=== PATIENT | male | born 1940 | race Caucasian/White ===

== ENCOUNTER 2019-01-28 17:32 | Emergency (ER) | payer MEDICARE, OTHER ==
[~2019-01-28] VITALS: Ht 177.8 cm; Wt 80.3 kg
--- NOTE | 2019-01-28 17:45 | NUR ---
BIB SON FROM URGENT CARE FOR C/O SOB SINCE 8AM AND HYPERTENSION, ALSO C/O SHAKINESS, TO ER BED 10, HOOKED TO MONITOR, CHANGED TO GOWN, PROVIDED W WARM BLANKET, AWAITING MD LOYD
--- NOTE | 2019-01-28 17:50 | NUR ---
DR HEIN AT BEDSIDE
[2019-01-28 18:12] LABS: BASOPHILS % (AUTO) 1.1 % (0.0-2.0); EOSINOPHILS % (AUTO) 0.9 % (0.0-6.0); HEMATOCRIT 43 % (39-51); HEMOGLOBIN 14.8 g/dL (13.5-17.5); LYMPHOCYTES # (AUTO) 0.6 /CMM (0.8-4.8); LYMPHOCYTES % (AUTO) 14.4 % (20.0-44.0); MEAN CORPUSCULAR HGB CONC 35 g/dl (31.0-36.0); MEAN CORPUSCULAR VOLUME 100 fL (80-96); MONOCYTES # (AUTO) 0.5 /CMM (0.1-1.30); NEUTROPHILS # (AUTO) 2.7 /CMM (1.8-8.9); NEUTROPHILS % (AUTO) 70.6 % (43.0-81.0); PLATELET COUNT (AUTO) 274 /CMM (150-450); RED BLOOD CELL COUNT(AUTO) 4.28 MIL/uL (4.5-6.0); WHITE BLOOD COUNT (AUTO) 3.9 K/uL (4.3-11.0)
[2019-01-28] MEDS ORDERED: TELM80TA2 PO (18:13)
[2019-01-28] MEDS ORDERED: NEBI5TAB8 PO (18:13)
[2019-01-28] MEDS ORDERED: ALPR0.255 PO (18:15)
[2019-01-28] MEDS ORDERED: AMLO2.5T4 PO (18:15)
[2019-01-28 18:20] LABS: CALCIUM, SERUM 9.1 mg/dL (8.5-10.1); CARBON DIOXIDE 29 mmol/L (21-32); CHLORIDE 101 mmol/L (98-107); CREATININE 0.9 mg/dL (0.6-1.3); GLUCOSE 111 mg/dL (74-106); POTASSIUM 3.9 mmol/L (3.5-5.1); SODIUM SERUM 139 mmol/L (136-145); UREA NITROGEN, BLOOD 14 mg/dL (7-18)
[2019-01-28 18:32] LABS: ALANINE AMINOTRANSFERASE 25 U/L (12-78); ALBUMIN 4.6 g/dL (3.4-5.0); ALKALINE PHOSPHATASE 58 U/L (46-116); ASPARTATE AMINOTRANSFERASE 24 U/L (15-37); B-TYPE NATRIURETIC PEPTIDE 793 PG/ML (0-125); BILIRUBIN,DIRECT 0.2 mg/dL (0.0-0.2); BILIRUBIN,TOTAL 0.8 mg/dL (0.2-1.0); TOTAL PROTEIN, SERUM 7.9 g/dL (6.4-8.2)
--- NOTE | 2019-01-28 19:05 | NUR ---
IV removed. Catheter intact and site benign. Pressure and 4x4 applied to site. No bleeding noted.Patient discharged to home in stable condition. Written and verbal after care instructions given. Patient verbalizes understanding of instruction.
[2019-01-28 19:06] VITALS: BP 161/82
== END 2019-01-28 19:07 | disposition home or self-care (01) ==
LOC: ER 17:36
DX: R06.02 Shortness of breath (principal); I10 Essential (primary) hypertension; Z88.7 Allergy status to serum and vaccine; Z88.6 Allergy status to analgesic agent
CPT/HCPCS: 36415; 71045-TC; 80048-TC; 80076-TC; 83880; 84484-TC; 85025-TC

== ENCOUNTER 2019-10-13 17:52 | Emergency (ER) | payer MEDICARE, BC ==
[~2019-10-13] VITALS: Ht 177.8 cm; Wt 78.0 kg
[~2019-10-13 17:52] MED LIST: ALPR0.255 PO; AMLO2.5T4 PO; NEBI5TAB8 PO; TELM80TA2 PO
--- NOTE | 2019-10-13 18:57 | NUR ---
PT REC'D TO ER C/O HARD TO SWALLOW FOR 1 WEEK . IV SATRTED 20G RT AC LABS AND UA SENT TO LAB AWAITING EVALUATION BY ER PROVIDER.
[2019-10-13 19:08] LABS: BASOPHILS # (AUTO) 0.1 /CMM (0.0-0.2); BASOPHILS % (AUTO) 1.4 % (0.0-2.0); EOSINOPHILS % (AUTO) 1.1 % (0.0-6.0); HEMATOCRIT 39 % (39-51); HEMOGLOBIN 13.3 g/dL (13.5-17.5); LYMPHOCYTES # (AUTO) 0.6 /CMM (0.8-4.8); LYMPHOCYTES % (AUTO) 16.3 % (20.0-44.0); MEAN CORPUSCULAR HGB CONC 34 g/dl (31.0-36.0); MEAN CORPUSCULAR VOLUME 98 fL (80-96); MONOCYTES # (AUTO) 0.7 /CMM (0.1-1.30); MONOCYTES % (AUTO) 19.7 % (2.0-12.0); NEUTROPHILS # (AUTO) 2.3 /CMM (1.8-8.9); NEUTROPHILS % (AUTO) 61.5 % (43.0-81.0); PLATELET COUNT (AUTO) 335 /CMM (150-450); RED BLOOD CELL COUNT(AUTO) 3.97 MIL/uL (4.5-6.0); WHITE BLOOD COUNT (AUTO) 3.7 K/uL (4.3-11.0)
[2019-10-13 19:17] LABS: CALCIUM, SERUM 9.1 mg/dL (8.5-10.1); CREATININE 0.8 mg/dL (0.6-1.3)
[2019-10-13 19:23] LABS: POTASSIUM 4.1 mmol/L (3.5-5.1)
[2019-10-13] MEDS ORDERED: IOHEXOL-300 100 ML VIAL IV ONE (19:42)
[2019-10-13] MEDS ORDERED: CT SWABBABLE VALVE TRANS SET 1 EA INFUS.SET MC ONE (19:42)
[2019-10-13] MEDS ORDERED: IV NS 0.9% 250 ML IV ONE (19:42)
--- NOTE | 2019-10-13 19:42 | NUR ---
REPORT RECEIVED FROM Wriggle FOR JAVIER
--- NOTE | 2019-10-13 20:50 | NUR ---
CALLED MALIKA TO HOTLINE CT READING.
[2019-10-13 22:50] VITALS: BP 162/88
== END 2019-10-13 22:52 | disposition home or self-care (01) ==
LOC: ER 17:53
DX: R13.10 Dysphagia, unspecified (principal); I10 Essential (primary) hypertension; Z98.890 Other specified postprocedural states; Z88.8 Allergy status to other drugs, medicaments and biological substances; Z88.1 Allergy status to other antibiotic agents; Z79.899 Other long term (current) drug therapy
CPT/HCPCS: 36415; 70491; 71046; 80048; 85025; 99284; J7050; Q9967

== ENCOUNTER 2021-06-26 13:20 | Inpatient (IN) | payer MEDICARE, BC ==
[~2021-06-26] VITALS: Ht 177.8 cm; Wt 62.6 kg
--- NOTE | 2021-06-26 13:23 | NUR ---
The patient is [address] for witnessed syncope by neighbor. 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 LKW 1253 son concern about father's speech. Attached to the monitor
--- NOTE | 2021-06-26 13:23 | NUR ---
DR GOMEZ AT THE BEDSIDE
--- NOTE | 2021-06-26 13:26 | NUR ---
ACTIVATED CODE STROKE, SENT TELEMED IQ REQUEST, NEURO PAGED
--- NOTE | 2021-06-26 13:27 | NUR ---
THE PATIENT IS TAKEN TO CT PER POLICY
--- NOTE | 2021-06-26 13:27 | NUR ---
PHLEBATOMIST AT THE BEDSIDE
[2021-06-26] MEDS ORDERED: IV NS 0.9% 250 ML IV ONE (13:29)
[2021-06-26] MEDS ORDERED: IOHEXOL-350 100 ML VIAL IV ONE (13:29)
--- NOTE | 2021-06-26 13:30 | NUR ---
Note [email or web address] in EDM - 06/26/21 at 1554 by ESSIE The patient is [address] home for witnessed syncope by neighbor. 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 LKW 1258 son concern about father's speech. Attached to the monitor
--- NOTE | 2021-06-26 13:36 | NUR ---
REPORT GIVEN TO NURSE DOTY
--- NOTE | 2021-06-26 13:37 | NUR ---
TELE AND NURO REQUEST HAS BEEN SENT
--- NOTE | 2021-06-26 13:39 | NUR ---
THE PATIENT IS BACK FROM CT
--- NOTE | 2021-06-26 13:47 | NUR ---
X-RAY TECH AT THE BEDSIDE
--- NOTE | 2021-06-26 13:51 | NUR ---
COVID SWAB DONE AND SENT TO THE LAB
[2021-06-26 13:52] LABS: CALCIUM, SERUM 8.4 mg/dL (8.5-10.1); CARBON DIOXIDE 29 mmol/L (21-32); CHLORIDE 100 mmol/L (98-107); CREATININE 0.9 mg/dL (0.6-1.3); GLUCOSE 108 mg/dL (74-106); POTASSIUM 4.1 mmol/L (3.5-5.1); SODIUM SERUM 136 mmol/L (136-145); UREA NITROGEN, BLOOD 17 mg/dL (7-18)
[2021-06-26 13:55] LABS: BASOPHILS # (AUTO) 0.1 K/uL (0.0-0.2); BASOPHILS % (AUTO) 1.2 % (0.0-2.0); EOSINOPHILS % (AUTO) 0.7 % (0.0-6.0); HEMATOCRIT 36 % (39-51); HEMOGLOBIN 12.1 g/dL (13.5-17.5); LYMPHOCYTES # (AUTO) 0.7 K/uL (0.8-4.8); LYMPHOCYTES % (AUTO) 16.6 % (20.0-44.0); MEAN CORPUSCULAR HGB CONC 34 g/dl (31.0-36.0); MEAN CORPUSCULAR VOLUME 100 fL (80-96); MONOCYTES # (AUTO) 0.7 K/uL (0.1-1.30); MONOCYTES % (AUTO) 15.9 % (2.0-12.0); NEUTROPHILS # (AUTO) 2.7 K/uL (1.8-8.9); NEUTROPHILS % (AUTO) 65.6 % (43.0-81.0); PLATELET COUNT (AUTO) 276 K/uL (150-450); RED BLOOD CELL COUNT(AUTO) 3.59 MIL/uL (4.5-6.0); WHITE BLOOD COUNT (AUTO) 4.2 K/uL (4.3-11.0)
--- NOTE | 2021-06-26 14:01 | NUR ---
TELE MED NEUROLOGIST PAGED MULTIPLE TIMES.
--- NOTE | 2021-06-26 14:04 | NUR ---
NUROLOGIST SPEAKING TO PATIENT THROUGH TELE SCREEN AT BEDSIDE.
--- NOTE | 2021-06-26 14:04 | NUR ---
Justice [email or web address] in ED - 06/26/21 at [address] QUEVEDO THE PATIENT IS NON CANDIDIATE FOR tPA DUE TO RISKS OF tPA IS BIGGER THEN THE BENEFITS.
--- NOTE | 2021-06-26 14:04 | NUR ---
PER DR QUEVEDO THE PATIENT IS NON CANDIDIATE FOR tPA DUE TO RISKS OUTWEIGHS THE BENEFITS.
[2021-06-26] MEDS ORDERED: ASPIRIN EC 81 MG TABLET.DR PO SCH (14:30)
[2021-06-26] MEDS ORDERED: ACETAMINOPHEN 325 MG TABLET PO PRN (14:30)
[2021-06-26] MEDS ORDERED: LABETALOL 20 MG/4 ML VIAL IV PRN (14:30)
[2021-06-26] MEDS ORDERED: ONDANSETRON HCL/PF 4 MG/2 ML VIAL IVP PRN (14:30)
[2021-06-26] MEDS ORDERED: MORPHINE SULFATE INJ 2 MG/ML DISP.SYRIN IV PRN (14:30)
--- NOTE | 2021-06-26 14:38 | NUR ---
TEXTED DR. MONDRAGON FOR MRI APPROVAL.
[2021-06-26] MEDS ORDERED: METO25TA20 PO ×2 (14:47)
[2021-06-26] MEDS ORDERED: TEMA15CA PO (14:47)
[2021-06-26] MEDS ORDERED: ASPIRIN 81 MG TAB.CHEW PO ONE (15:00)
[2021-06-26 15:08] LABS: CHOLESTEROL 151 mg/dL (<200); HDL CHOLESTEROL 80 mg/dL (40-60); LDL 63 mg/dL (0-99); TRIGLYCERIDES 33 mg/dL (30-150)
[2021-06-26] MEDS ORDERED: ASPIRIN 81 MG TAB.CHEW ONE (15:25)
--- NOTE | 2021-06-26 15:53 | NUR ---
THE PATIENT IS TRANSFERED TO ROOM 324 IN STABLE CONDITION AND PER ACLS POLICY.
[2021-06-26] MEDS ORDERED: ALPRAZOLAM 0.25 MG TABLET PO ONE (15:59)
[2021-06-26 16:00] VITALS: BP 177/78
--- NOTE | 2021-06-26 16:10 | NUR ---
FINANCIAL SALES CONSULTANT NOTE PATIENT REPORT RECEIVED FROM LAURENT. PATIENT ADMITTED FOR TIA FROM ER WITH SIGNS NOTED AROUND 1253H PER RN. PATIENT UNDER STROKE PROTOCOL PER RN. WILL WAIT FOR PATIENT.
--- NOTE | 2021-06-26 16:12 | NUR ---
MICROSYSTEMS ENGINEER NOTE PATIENT RECEIVED FROM ER VIA GURNEY ACCOMPANIED BY 2 NURSES. PATIENT ALERT AND ORIENTED X 3-4 WITH SOME SLURRING AND STUTTERING. PATIENT TRANSFERRED TO BED AND HOOKED TO TELE MONITOR. REINSTATEMENT CLERK CAME AND PICKED UP THE PATIENT FOR MRI WITH SON NOW AT BEDSIDE. DR. AVILA CAME AND ORDERED XANAX FOR THE PATIENT TO CALM HIM DOWN FOR MRI SINCE PATIENT CLAIMS HE IS CLAUSTROPHOBIC/ ANXIOUS. COMFORT MEASURES PROVIDED. PATIENT BROUGHT DOWN FOR MRI AT 1625. WILL WAIT FOR PATIENT'S RETURN FOR FULL ASSESSMENT AND DATA GATHERING.
[2021-06-26 16:33] LABS: BAND % (MANUAL) 1 % (0.0-5.0); LYMPHOCYTES % (MANUAL) 19 % (16-48); MONOCYTES % (MANUAL) 12 % (0-11.0); NEUTROPHILS % (MANUAL) 68 (42-76)
--- NOTE | 2021-06-26 17:00 | NUR ---
PLUSH DRESSER NOTE EVALUATED PATIENT'S SWALLOWING CAPABILITY, WITH SON ANISA PRESENT. PATIENT'S DIET DOWNGRADED FROM REGULAR AND THICKENED LIQUIDS WITH DR. AVILA.
[2021-06-26] MEDS: ENOXAPARIN SODIUM 40 MG/0.4 ML DISP.SYRIN SQ SCH (17:33)
--- NOTE | 2021-06-26 19:00 | NUR ---
CATALYTIC CASE OPERATOR CLOSING NOTES PATIENT ON BED, A/O X4. PATIENT ON ROOM AIR WITH NO SIGNS OF ACUTE DISTRESS NOTED. PATIENT DOES NOT COMPLAIN OF PAIN OR DISCOMFORT AT THIS TIME. NOTED WITH STUTTERING AND SOME SLURRING OF SPEECH. STILL WITH IV ACCESS ON LEFT AND RIGHT AC ON SALINE LOCK. ON TELE MONITOR ON SINUS RHYTHYM. SAFETY MEASURES IN PLACE WITH BED ON LOWEST AND LOCKED POSITION, SIDE RAILS UP X2, CALL LIGHT AND TABLE WITHIN REACH. WILL ENDORSE PATIENT FOR CONTINUITY OF CARE.
--- NOTE | 2021-06-26 19:57 | NUR ---
NATIONAL FLATBED TRUCK DRIVER OPENING NOTE PT A/OX4 ABLE TO MAKE NEEDS KNOWN; IN ROOM. SLURRED SPEECH AND STUTTERING NOTED. TOLERATING R/A WELL WITH NO SOB. EXTERNAL TELE MONITOR READS SR AT 74. LAC #18G S/L; PATEND AND INTACT. RAC #18G S/L; PATEND AND INTACT. DENIES PAIN OR DISCOMFORT AT THIS TIME. ALL NEEDS MET. EMY (SON ) AT BEDSIDE. SAFETY MEASURES IN PLACE: BED IN LOWEST LOCKED POSITION; SIDE RAILS UPX2, CALL LIGHT WITHIN EASY REACH. PATIENT IN STABLE CONDITION, WILL CONTINUE PLAN OF CARE.
[2021-06-26 20:00] VITALS: BP 175/90
[2021-06-26] MEDS: METOPROLOL TARTRATE 25 MG TABLET PO SCH (20:05)
[2021-06-26] MEDS: ATORVASTATIN 40 MG TABLET PO SCH (22:00)
[2021-06-26] MEDS ORDERED: QUETIAPINE FUMARATE 25 MG TABLET PO ONE (22:00)
--- NOTE | 2021-06-26 22:00 | NUR ---
SCRAP HOIST OPERATOR NOTE - BP AND INSOMNIA PT NOTED WITH BP OF 189/ 79 & HR OF 72. LABETOLOL NOT AVAILABLE; ADMINISTERED HYDRALAZINE ORDERED. WILL REASSESS BP IN 30 MINUTES. PT C/O DIFFICULTY FALLING ASLEEP. ADMINISTERED SEROQUEL PO ONE TIME ORDER FROM SRUTHI THERAPY TECH. WILL REASSESS FOR SLEEP IN 1 HOUR.
[2021-06-26] MEDS: hydrALAZINE HCL IV 20 MG VIAL IV PRN (22:01)
[2021-06-27] VITALS (9 sets, daily range): BP systolic 107–169; BP diastolic 50–71
[2021-06-27] MEDS: hydrALAZINE HCL IV 20 MG VIAL IV PRN (04:19)
--- NOTE | 2021-06-27 04:20 | NUR ---
CARE GIVER NOTE - BP PT NOTED WITH BP OF 169/ 79 & HR OF 7H. LABETOLOL NOT AVAILABLE; ADMINISTERED HYDRALAZINE ORDERED. WILL REASSESS BP IN 30 MINUTES.
--- NOTE | 2021-06-27 06:01 | NUR ---
GRAINER MACHINE CLOSING NOTE PT A/OX4 ABLE TO MAKE NEEDS KNOWN; IN ROOM. TOLERATING R/A WELL WITH NO SOB. EXTERNAL TELE MONITOR READS SR AT 69. LAC #18G S/L; PATEND AND INTACT. RAC #18G S/L; PATENT AND INTACT. DENIES PAIN OR DISCOMFORT AT THIS TIME. ALL NEEDS MET. SAFETY MEASURES IN PLACE: BED IN LOWEST LOCKED POSITION; SIDE RAILS UPX2, CALL LIGHT WITHIN EASY REACH, BED ALARM ON. PATIENT IN STABLE CONDITION, WILL ENDORSE PLAN OF CARE TO ONCOMING MORNING RN.
[2021-06-27 06:31] LABS: BASOPHILS % (AUTO) 0.7 % (0.0-2.0); EOSINOPHILS % (AUTO) 0.6 % (0.0-6.0); HEMATOCRIT 36 % (39-51); HEMOGLOBIN 12.6 g/dL (13.5-17.5); LYMPHOCYTES # (AUTO) 0.5 K/uL (0.8-4.8); LYMPHOCYTES % (AUTO) 8.6 % (20.0-44.0); MEAN CORPUSCULAR HGB CONC 35 g/dl (31.0-36.0); MEAN CORPUSCULAR VOLUME 99 fL (80-96); MONOCYTES % (AUTO) 16.6 % (2.0-12.0); NEUTROPHILS # (AUTO) 4.3 K/uL (1.8-8.9); NEUTROPHILS % (AUTO) 73.5 % (43.0-81.0); PLATELET COUNT (AUTO) 271 K/uL (150-450); RED BLOOD CELL COUNT(AUTO) 3.64 MIL/uL (4.5-6.0); WHITE BLOOD COUNT (AUTO) 5.8 K/uL (4.3-11.0)
[2021-06-27 07:00] LABS: ALBUMIN 3.5 g/dL (3.4-5.0); BILIRUBIN,TOTAL 0.9 mg/dL (0.2-1.0); CALCIUM, SERUM 8.1 mg/dL (8.5-10.1); CREATININE 0.7 mg/dL (0.6-1.3); PHOSPHORUS 3.2 mg/dL (2.5-4.9); POTASSIUM 3.6 mmol/L (3.5-5.1); TOTAL PROTEIN, SERUM 6.7 g/dL (6.4-8.2)
--- NOTE | 2021-06-27 07:06 | NUR ---
RN OPENING NOTES. RECEIVED PATIENT WAKE IN BED AT THIS TIME. AOX4, ABLE TO COMMUNICATE NEEDS. NO SOB NOTED, DENIES PAIN AT THIS TIME, NO S/S OF ANY ACUTE DISTRESS NOTED. RESPIRATIONS EVEN AND UNLABORED. IV ACCESS NOTED IN LAC G#18 AND RAC G#18, BOTH INTACT, PATENT AND FLUSHING WELL. ASPIRATION AND SAFETY PRECAUTIONS IN PLACE AND MAINTAINED AT ALL TIMES. BED IN LOWEST LOCKED POSITION, HOB ELEVATED, SIDE RAILS UP X2, CALL LIGHT AND TABLE WITHIN REACH, WILL CONTINUE TO MONITOR
[2021-06-27] MEDS: METOPROLOL TARTRATE 25 MG TABLET PO SCH ×2 (09:02→21:02)
[2021-06-27] MEDS: AMLODIPINE BESYLATE 2.5 MG TABLET PO SCH (09:02)
[2021-06-27] MEDS: LOSARTAN POTASSIUM 50 MG TABLET PO SCH (09:03)
[2021-06-27] MEDS: ALPRAZOLAM 0.25 MG TABLET PO SCH (09:03)
[2021-06-27 10:34] LABS: LYMPHOCYTES % (MANUAL) 9 % (16-48); MONOCYTES % (MANUAL) 13 % (0-11.0); NEUTROPHILS % (MANUAL) 78 (42-76)
[2021-06-27] MEDS ORDERED: CALCIUM CARBONATE 500 MG TAB.CHEW PO PRN (11:00)
--- NOTE | 2021-06-27 18:39 | NUR ---
RN CLOSING NOTES PATIENT AWAKE IN BED AT THIS TIME.PATIENT REMAINED STABLE THROUGHOUT SHIFT. ALL CARE, NEEDS, MEDICATIONS AND TREATMENT ADMINISTERED ANTICIPATED PER ORDER. PATIENT KEPT CLEAN AND DRY. ASPIRATION AND SAFETY PRECAUTIONS IN PLACE AND MAINTAINED AT ALL TIMES. BED IN LOWEST LOCKED POSITION, HOB ELEVATED, SIDE RAILS UP X2, CALL LIGHT AND TABLE WITHIN REACH, WILL ENDORSE TO OYSTER WORKER NURSE FOR JAVIER
--- NOTE | 2021-06-27 19:35 | NUR ---
ACTUARIAL SCIENCE PROFESSOR OPENING NOTES RECEIVED PT IN BED, WATCHING TV. AOx4. ABLE TO MAKE NEEDS KNOWN. ON RA AND TOLERATING WELL. NO SOB NOTED. NO S/SX OF RESPIRATORY DISTRESS NOTED. IV ACCESS IN RAC #18 AND LAC #18. IV ACCESS IS INTACT, PATENT, AND FLUSHING WELL. TELE MONITOR DETECT SINUS RHYTHM WITH RATE OF 81. SAFETY PRECAUTIONS IN PLACE: BED IN LOWEST, LOCKED POSITION, BRAKES ON, SIDERAILS UPx2. TABLE AND CALL LIGHT WITHIN REACH. WILL CONTINUE TO MONITOR.
[2021-06-27] MEDS ORDERED: TEMAZEPAM 15 MG CAPSULE PO PRN (21:00)
[2021-06-27] MEDS: ATORVASTATIN 40 MG TABLET PO SCH (21:01)
[2021-06-27] MEDS: ENOXAPARIN SODIUM 40 MG/0.4 ML DISP.SYRIN SQ SCH (21:46)
[2021-06-28] VITALS: BP 148/76
[2021-06-28 05:01] VITALS: BP 149/64
--- NOTE | 2021-06-28 06:39 | NUR ---
GAS LINE SERVICER CLOSING NOTES PT IN BED, SLEEPING, AWAKENS TO VERBAL STIMULI. AOx4. ABLE TO MAKE NEEDS KNOWN. ON RA AND TOLERATING WELL. NO SOB NOTED. NO S/SX OF RESPIRATORY DISTRESS NOTED. IV ACCESS IN RAC #18 AND LAC #18. IV ACCESS IS INTACT, PATENT, AND FLUSHING WELL. TELE MONITOR DETECT SINUS RHYTHM WITH A 1ST DEGREE BUNDLE BRANCH BLOCK AND RATE OF 81. ALL NEEDS MET. PT KEPT CLEAN AND DRY. SAFETY PRECAUTIONS IN PLACE: BED IN LOWEST, LOCKED POSITION, BRAKES ON, SIDERAILS UPx2. TABLE AND CALL LIGHT WITHIN REACH. WILL ENDORSE TO ONCOMING SHIFT.
--- NOTE | 2021-06-28 07:38 | NUR ---
SPRING CLIPPER OPENING NOTES RECEIVED PT IN BED, AWAKE. AOx4. ABLE TO MAKE NEEDS KNOWN. ON RA AND TOLERATING WELL, NO SOB NOTED. NO S/SX OF DISTRESS NOTED. DENIES PAIN AT THIS TIME. IV ACCESS ON RAC #18 AND LAC #18. IV ACCESS IS INTACT, PATENT, AND FLUSHING WELL. TELE MONITOR DETECTS SINUS RHYTHM WITH RATE OF 74. SAFETY PRECAUTIONS IN PLACE: BED IN LOWEST, LOCKED POSITION, BRAKES ON, SIDERAILS UPx2. TABLE AND CALL LIGHT WITHIN REACH. WILL CONTINUE TO MONITOR.
[2021-06-28 08:00] VITALS: BP 137/63
[2021-06-28] MEDS: ALPRAZOLAM 0.25 MG TABLET PO SCH (08:18)
[2021-06-28] MEDS: METOPROLOL TARTRATE 25 MG TABLET PO SCH (08:21)
[2021-06-28 08:22] VITALS: BP 137/63
[2021-06-28] MEDS: LOSARTAN POTASSIUM 50 MG TABLET PO SCH (08:22)
[2021-06-28] MEDS: AMLODIPINE BESYLATE 2.5 MG TABLET PO SCH (08:22)
[2021-06-28] MEDS ORDERED: ATOR40TA PO (08:28)
--- NOTE | 2021-06-28 12:30 | NUR ---
DISCHARGE NOTE PATIENT WAS DISCHARGED VIA WHEELCHAIR. WHEELED DOWN BY CHAR BRAXTON. HEALTH TEACHING AND DISCHARGE INSTRUCTIONS GIVEN. PT VERBALIZED UNDERSTANDING. PICKED UP BY MERY (SON) AND DTR. REMOVED IV ACCESS, ID [id number]. BELONGINGS WAS HANDED TO THE PT. ALL FORMS SIGNED.
== END 2021-06-28 12:30 | disposition home or self-care (01) | DRG 74 ==
LOC: ER 13:22 → TELE 15:46 → MED 06-28 10:35
PROVIDERS: ADMIT Internal Medicine; ATTEND Internal Medicine
DX: G90.8 Other disorders of autonomic nervous system (principal); I50.32 Chronic diastolic (congestive) heart failure; R47.1 Dysarthria and anarthria; Z20.822 Contact with and (suspected) exposure to COVID-19; I11.0 Hypertensive heart disease with heart failure; I25.10 Atherosclerotic heart disease of native coronary artery without angina pectoris; H26.9 Unspecified cataract; R13.10 Dysphagia, unspecified; Z98.890 Other specified postprocedural states; Z88.7 Allergy status to serum and vaccine; Z88.8 Allergy status to other drugs, medicaments and biological substances; Z79.899 Other long term (current) drug therapy; I65.23 Occlusion and stenosis of bilateral carotid arteries; D50.9 Iron deficiency anemia, unspecified; I44.0 Atrioventricular block, first degree; Z66 Do not resuscitate; Z87.19 Personal history of other diseases of the digestive system; F40.240 Claustrophobia; Z87.11 Personal history of peptic ulcer disease; W18.30XA Fall on same level, unspecified, initial encounter; Y92.89 Other specified places as the place of occurrence of the external cause
CPT/HCPCS: 36415; 70450-TC; 70496-TC; 70498-TC; 70551-TC; 71045-TC; 80048-TC; 80053-TC; 80061-TC; 82962-TC; 83605-TC; 83735-TC; 84100-TC; 84484-TC; 85025-TC; 85730-TC; 87040-TC; 87081-TC; 93307-TC; 97116-TC; 97530-TC; 97535-TC; C9803; G0378; J0360; J1650; J7050; Q9967